=== PATIENT | female | born 1940 | race Asian ===

== ENCOUNTER 2024-11-27 15:43 | Inpatient (IN) | payer MEDICARE, OTHER ==
[~2024-11-27] VITALS: Ht 147.3 cm; Wt 50.7 kg
[~2024-11-27 15:43] MED LIST: AMLO-257 PO; ANAS1TAB50 PO; ASPI-556 PO; CALC-1038 PO; FENO48TA12 PO; LISI-894 PO; ROSU20TA98 PO
[2024-11-27 16:19] LABS: BASOPHILS % (AUTO) 0.8 % (0.0-2.0); EOSINOPHILS % (AUTO) 3.5 % (1.0-6.0); HEMATOCRIT 40.6 % (36-46); HEMOGLOBIN 13.4 g/dL (12.0-16.0); LYMPHOCYTES # (AUTO) 1.3 K/uL (1.0-4.8); LYMPHOCYTES % (AUTO) 22.4 % (22.0-44.0); MEAN CORPUSCULAR HEMOGLOBIN 30.3 pg (26.0-34.0); MEAN CORPUSCULAR HGB CONC 33.1 G/dL (31.0-37.0); MEAN CORPUSCULAR VOLUME 92 fL (80-100); MONOCYTES # (AUTO) 0.6 K/uL (0.1-1.0); MONOCYTES % (AUTO) 9.3 % (2.0-9.0); NEUTROPHILS # (AUTO) 3.8 K/uL (1.8-7.7); PLATELET COUNT (AUTO) 249 K/uL (150-450); RED BLOOD CELL COUNT(AUTO) 4.43 MIL/uL (4.00-5.20); RED CELL DISTRIBUTION WIDTH 13.3 % (11.5-14.5)
[2024-11-27 16:38] LABS: ANION GAP 6 mmol/L (8-16); CALCIUM, TOTAL 9.5 mg/dL (8.8-10.5); CARBON DIOXIDE 29 mmol/L (22-29); CHLORIDE 101 mmol/L (98-107); CREATININE 0.53 mg/dL (0.60-1.30); GLOMERULAR FILTR. RATE CALC > 60 mL/min (>60); GLUCOSE,RANDOM 114 mg/dL (70-110); POTASSIUM 4.1 mmol/L (3.5-5.1); SODIUM SERUM 136 mmol/L (136-145); UREA NITROGEN, BLOOD 18 mg/dL (7-18)
[2024-11-27 16:51] LABS: TROPONIN I-HIGH SENSITIVITY 98 ng/L (<51)
[2024-11-27] MEDS: ASPIRIN 81 MG CHEWABLE TABLET PO ONE ×2 (17:06→20:54)
[2024-11-27] MEDS: LABETALOL HCL 5 MG/ML 20 ML VIAL IVP ONE (17:12)
[2024-11-27] MEDS ORDERED: CHOL25TA4 PO (18:39)
[2024-11-27] MEDS ORDERED: HYDR25TA84 PO (18:39)
[2024-11-27] MEDS ORDERED: ONDANSETRON HCL 4 MG/2 ML VIAL IVP PRN (20:15)
[2024-11-27] MEDS ORDERED: ALBUTEROL SULFATE 2.5 MG/0.5 ML NEB SOLUTION NEB PRN (20:15)
[2024-11-27] MEDS ORDERED: IPRATROPIUM BROMIDE 0.5 MG/2.5 ML NEB SOLUTION NEB PRN (20:15)
[2024-11-27 20:18] LABS: TROPONIN I-HIGH SENSITIVITY 115 ng/L (<51)
[2024-11-27] MEDS: ACETAMINOPHEN 325 MG TABLET PO PRN (20:54)
[2024-11-27] MEDS: DOCUSATE SODIUM 100 MG CAPSULE PO SCH (20:54)
[2024-11-27] MEDS: ATORVASTATIN CALCIUM 40 MG TABLET PO SCH (21:00)
[2024-11-27 23:19] VITALS: BP 155/66; PULSE 65; RESP 16; TEMP 98.2; O2SAT 98
[2024-11-28] VITALS (7 sets, daily range): BP systolic 137–170; BP diastolic 58–75; PULSE 66–79; RESP 16–18; TEMP 97.5–98.2; O2SAT 97–99
[2024-11-28] MEDS: HEPARIN SODIUM,PORCINE 5,000 UNITS/ML VIAL SQ SCH
[2024-11-28 01:48] LABS: TROPONIN I-HIGH SENSITIVITY 93 ng/L (<51)
[2024-11-28 06:45] LABS: BASOPHILS % (AUTO) 1.1 % (0.0-2.0); HEMOGLOBIN 12.5 g/dL (12.0-16.0); LYMPHOCYTES # (AUTO) 1.9 K/uL (1.0-4.8); LYMPHOCYTES % (AUTO) 26.9 % (22.0-44.0); MEAN CORPUSCULAR HEMOGLOBIN 30.2 pg (26.0-34.0); MEAN CORPUSCULAR VOLUME 92 fL (80-100); MONOCYTES # (AUTO) 0.8 K/uL (0.1-1.0); MONOCYTES % (AUTO) 11.6 % (2.0-9.0); NEUTROPHILS # (AUTO) 4.1 K/uL (1.8-7.7); NEUTROPHILS % (AUTO) 57.4 % (40.0-70.0); PLATELET COUNT (AUTO) 240 K/uL (150-450); RED BLOOD CELL COUNT(AUTO) 4.15 MIL/uL (4.00-5.20); RED CELL DISTRIBUTION WIDTH 13.2 % (11.5-14.5); WHITE BLOOD COUNT (AUTO) 7.2 K/uL (4.5-11.0)
[2024-11-28 07:09] LABS: ANION GAP 7 mmol/L (8-16); CARBON DIOXIDE 29 mmol/L (22-29); CHLORIDE 105 mmol/L (98-107); CHOL/HDL RATIO 1.9 (3.9-5.7); CHOLESTEROL 158 mg/dL (131-200); CREATININE 0.63 mg/dL (0.60-1.30); GLOMERULAR FILTR. RATE CALC > 60 mL/min (>60); GLUCOSE,RANDOM 92 mg/dL (70-110); HDL CHOLESTEROL 82 mg/dL (40-60); LDL CHOL (CALC.) 64 mg/dL (0-130); SODIUM SERUM 141 mmol/L (136-145); TRIGLYCERIDES 60 mg/dL (15-150); UREA NITROGEN, BLOOD 12 mg/dL (7-18)
[2024-11-28 07:12] LABS: TROPONIN I-HIGH SENSITIVITY 107 ng/L (<51)
[2024-11-28] MEDS: CLOPIDOGREL BISULFATE 75 MG TABLET PO SCH (08:33)
[2024-11-28] MEDS: ASPIRIN 81 MG CHEWABLE TABLET PO SCH (08:34)
[2024-11-28 12:14] LABS: TROPONIN I-HIGH SENSITIVITY 94 ng/L (<51)
[2024-11-28] MEDS ORDERED: HydrALAZINE HCL 20 MG/ML VIAL IVP PRN (13:30)
[2024-11-28] MEDS: LISINOPRIL 20 MG TABLET PO SCH (17:50)
[2024-11-29 04:47] VITALS: BP 135/69; PULSE 71; RESP 17; TEMP 97.8; O2SAT 97
[2024-11-29 05:52] VITALS: BP 122/74; PULSE 67; RESP 16; TEMP 98.4; O2SAT 96
[2024-11-29 06:49] LABS: BASOPHILS % (AUTO) 1.4 % (0.0-2.0); EOSINOPHILS % (AUTO) 4.8 % (1.0-6.0); HEMATOCRIT 39.1 % (36-46); HEMOGLOBIN 12.8 g/dL (12.0-16.0); LYMPHOCYTES # (AUTO) 2.1 K/uL (1.0-4.8); LYMPHOCYTES % (AUTO) 32.7 % (22.0-44.0); MEAN CORPUSCULAR HGB CONC 32.8 G/dL (31.0-37.0); MEAN CORPUSCULAR VOLUME 92 fL (80-100); MONOCYTES # (AUTO) 0.6 K/uL (0.1-1.0); MONOCYTES % (AUTO) 9.1 % (2.0-9.0); NEUTROPHILS # (AUTO) 3.3 K/uL (1.8-7.7); PLATELET COUNT (AUTO) 262 K/uL (150-450); RED BLOOD CELL COUNT(AUTO) 4.26 MIL/uL (4.00-5.20); WHITE BLOOD COUNT (AUTO) 6.3 K/uL (4.5-11.0)
[2024-11-29 07:20] LABS: ANION GAP 9 mmol/L (8-16); CARBON DIOXIDE 25 mmol/L (22-29); CHLORIDE 104 mmol/L (98-107); CREATININE 0.58 mg/dL (0.60-1.30); GLOMERULAR FILTR. RATE CALC > 60 mL/min (>60); GLUCOSE,RANDOM 100 mg/dL (70-110); POTASSIUM 3.8 mmol/L (3.5-5.1); SODIUM SERUM 138 mmol/L (136-145); UREA NITROGEN, BLOOD 16 mg/dL (7-18)
[2024-11-29 08:00] VITALS: BP 137/69; PULSE 69; RESP 18; TEMP 98.1; O2SAT 97
[2024-11-29] MEDS ORDERED: ASPI-1450 PO (11:42)
[2024-11-29] MEDS ORDERED: LISI-894 PO (11:42)
[2024-11-29] MEDS ORDERED: ATOR40TA71 PO (11:42)
== END 2024-11-29 12:12 | disposition home or self-care (01) | DRG 281 ==
LOC: EMS 15:43 → EDH 20:04 → 5N 23:10
PROVIDERS: ADMIT Internal Medicine; ATTEND Internal Medicine
DX: I16.0 Hypertensive urgency (principal); G45.9 Transient cerebral ischemic attack, unspecified; I21.A1 Myocardial infarction type 2; I10 Essential (primary) hypertension; E78.00 Pure hypercholesterolemia, unspecified; Z53.20 Procedure and treatment not carried out because of patient's decision for unspecified reasons; Z79.82 Long term (current) use of aspirin; Z79.899 Other long term (current) drug therapy; Z85.3 Personal history of malignant neoplasm of breast; Z88.2 Allergy status to sulfonamides; Z91.041 Radiographic dye allergy status
CPT/HCPCS: 70450; 70551; 71045; 80048; 80061; 83735; 84484; 85025; 92610; 93005; 93306; 96374; 97116; 97162; 97165; 97535; 99285; J1644; J3490; 36415-L1; 36415-TC